=== PATIENT | male | born 1975 | race African-American/Black ===

== ENCOUNTER 2019-03-04 16:00 | Emergency (ER) | payer OTHER ==
[2019-03-04] MEDS ORDERED: HYDROmorphone HCL/PF 1 MG/ML VIAL ONE (16:25)
[2019-03-04] MEDS ORDERED: HYDROmorphone HCL/PF 1 MG/ML VIAL IM ONE (16:25)
[2019-03-04] MEDS ORDERED: ONDANSETRON HCL 4 MG TAB.RAPDIS ONE (16:25)
[2019-03-04] MEDS ORDERED: ONDANSETRON HCL 4 MG TAB.RAPDIS PO ONE (16:26)
--- NOTE | 2019-03-04 16:40 | ED Physician Documentation ---
General Adult - HISTORIAN Historian: patient - HPI Stated Complaint: L LE injury Chief Complaint: General Adult Onset: minutes Timing: still present Severity: moderate Further Comments: yes (Pt is a 44 yo aa male who was mowing a lawn when he fell down an embankment and twisted and injured his L ankle. Ankle is swollen with some deformity.) - ROS CONST: no problems EYES/ENT: none CVS/RESP: none GI/: none MS/SKIN/LYMPH: ankle swelling (L) - PAST HX Past History: hypertension Allergies/Adverse Reactions: Allergies Allergy/AdvReac Type Severity Reaction Status Date / Time No Known Drug Allergies Allergy Verified 03/04/19 16:25 Home Medications: Ambulatory Orders Medication Instructions Recorded NK 03/04/19 - SOCIAL HX Smoking History: non-smoker Alcohol Use: occasionally - FAMILY HX Family History: No - VITAL SIGNS Vital Signs: Vital Signs Temp Pulse Resp BP Pulse Ox 158/73 10/06/15 17:09 - REVIEWED ASSESSMENTS Nursing Assessment Reviewed: Yes Vitals Reviewed: Yes Progress - Progress Progress: Dilaudid 1 mg IM Zofran ODT 4 mg po X-ray L ankle/foot/tib/fib: A total of five views of the left tibia and fibula and left ankle were obtained which demonstrate no evidence for acute fracture or dislocation of the proximal tibia or fibula. However, there is an acute and displaced fracture involving the distal fibula. The distal fracture fragment is displaced posteriorly approximately 1.2 cm relative to the proximal fracture fragment. The distal tibia has dislocated anteriorly relative to the talus. There is a small dorsal and large plantar calcaneal spur. Impression: Acute fracture/dislocation of the left ankle as described. Transfer to [facility], ortho, Dr. Mejia. Pt insists on transfer by private vehicle. Pt wants to get to the car in a wheelchair and will wait for someone to get him from the car with a wheelchair at [facility]. Pt believes he can avoid weight bearing in the interval. ED Results Lab/Radiology - Orders Orders: ED Orders Category Date Time Status ANKLE 3 VIEWS OR MORE [RAD] Stat Exams 03/04/19 Ordered FOOT 3 VIEWS OR MORE [RAD] Stat Exams 03/04/19 Ordered TIBIA & FIBULA 2 VIEW [RAD] Stat Exams 03/04/19 Ordered HYDROmorphone HCL/PF [Dilaudid] Med 03/04/19 16:25 Discontinued 1 mg .ROUTE .STK-MED ONE HYDROmorphone HCL/PF [Dilaudid] Med 03/04/19 16:25 Discontinued 1 mg IM NOW ONE Ondansetron HCl Rapdis [Zofran Odt] Med 03/04/19 16:25 Discontinued 4 mg .ROUTE .STK-MED ONE Ondansetron HCl Rapdis [Zofran Odt] Med 03/04/19 16:26 Discontinued 4 mg PO NOW ONE General Adult Physical Exam - PHYSICAL EXAM GENERAL APPEARANCE: moderate distress NECK: normal inspection, supple RESPIRATORY: no resp distress, chest non-tender, breath sounds normal CVS: reg rate & rhythm, heart sounds normal ABDOMEN: soft, no organomegaly, normal bowel sounds BACK: normal inspection, no CVA tenderness SKIN: other (L ankle swelling, deformity) EXTREMITIES: other (L ankle swelling, deformity; pt has good DP pulse and sensation; closed injury) NEURO: oriented X3, sensation nml Discharge Clincal Impression: Fracture dislocation of left ankle Qualifiers: Encounter type: initial encounter Fracture type: closed Qualified Code(s): S82.892A - Other fracture of left lower leg, initial encounter for closed fracture Referrals: Primary Doctor,No [Primary Care Provider] - Condition: Stable Disposition: 02 XFER SHT-TRM HOSP Decision to Admit: NO Decision Time: 18:05
--- NOTE | 2019-03-04 18:03 | Diagnostic Imaging Report ---
LIZZIE CABRALES [facility] [address] [facility] [address] [address] Report Submission Date: Mar 04, 2019 5:43:18 PM CDT Patient Study Name: MIRZA WOO Date: Mar 04, 2019 4:37:00 PM CDT Modality Type: DX Gender: M Description: : 79 Institution: [facility] Physician: LIZZIE CABRALES Left foot History: Fell into a ditch Two views of the left foot were obtained. Please see separate ankle report with regard to the fracture/dislocation involving the ankle. No fracture site of the foot is noted. Plantar and dorsal calcaneal spurs are present. Impression: Please see separate ankle report with regard to ankle findings. No evidence for acute fracture or dislocation of the left foot. Electronically signed on Mar 04, 2019 5:43:18 PM CDT by: Carmen VU
--- NOTE | 2019-03-04 18:04 | Diagnostic Imaging Report ---
LIZZIE CABRALES [facility] [address] [facility] [address] [address] Report Submission Date: Mar 04, 2019 5:41:37 PM CDT Patient Study Name: MIRZA WOO Date: Mar 04, 2019 4:27:00 PM CDT Modality Type: DX Gender: M Description: : 79 Institution: [facility] Physician: LIZZIE CABRALES Left ankle History: Fell in the ditch wall mowing the yd A total of five views of the left tibia and fibula and left ankle were obtained which demonstrate no evidence for acute fracture or dislocation of the proximal tibia or fibula. However, there is an acute and displaced fracture involving the distal fibula. The distal fracture fragment is displaced posteriorly approximately 1.2 cm relative to the proximal fracture fragment. The distal tibia has dislocated anteriorly relative to the talus. There is a small dorsal and large plantar calcaneal spur. Impression: Acute fracture/dislocation of the left ankle as described. Electronically signed on Mar 04, 2019 5:41:37 PM CDT by: Carmen VU
[2019-03-04 18:42] VITALS: BP 156/94
== END 2019-03-04 18:17 | disposition short-term general hospital (02) ==
LOC: ED 16:00
DX: S82.892A Other fracture of left lower leg, initial encounter for closed fracture (principal); W17.81XA Fall down embankment (hill), initial encounter; Y93.H9 Activity, other involving exterior property and land maintenance, building and construction; Y92.9 Unspecified place or not applicable
CPT/HCPCS: 29540; 73590; 73630; 96372; 99285; A9270; J1170